=== PATIENT | female | born 1970 | race American Indian/Alaskan Native ===

== ENCOUNTER 2017-04-26 12:45 | Emergency (ER) | payer BC ==
[2017-04-26 13:40] LABS: Hematocrit 41.6 % (30.3-42.9); Hemoglobin 13.3 gm/dl (10.1-14.3); Mean Corpuscular HGB Conc 32 % (30-34); Mean Corpuscular Hemoglobin 27 pg (28-32); Mean Corpuscular Volume 86 fl (79-97); Platelet Count 229 K/mm3 (140-440); Red Blood Count 4.84 M/mm3 (3.65-5.03); Red Cell Distribution Width 14.7 % (13.2-15.2); White Blood Count 9.1 K/mm3 (4.5-11.0)
[2017-04-26 13:45] LABS: Anion Gap 18 mmol/L; BUN/Creatinine Ratio 13; Blood Urea Nitrogen 8 mg/dL (7-17); Calcium 8.7 mg/dL (8.4-10.2); Carbon Dioxide 23 mmol/L (22-30); Glucose 95 mg/dL (65-100); Potassium 4.1 mmol/L (3.6-5.0); Sodium 142 mmol/L (137-145)
[2017-04-26 14:20] LABS: Bilirubin,Urine NEG (Negative); Blood,Urine MOD (Negative); Ketones,Urine NEG (Negative); Leukocyte Esterase,Urine NEG (Negative); Mucus,Urine FEW /HPF; Nitrite,Urine NEG (Negative); Protein,Urine <15 mg/dL mg/dL (Negative); WBC,Urine < 1.0 /HPF (0.0-6.0)
--- NOTE | 2017-04-26 23:34 | Emergency Department Report ---
HPI - General Chief Complaint: Vaginal Bleeding Time Seen by Provider: 04/26/17 22:12 - HPI HPI: This is a 47-year-old demented female presents to the emergency department with complaint of a 3 day history of some low back pain, pelvic discomfort, and having an irregular period. The patient says that she last had her normal menstrual cycle about 2 weeks ago but recently started bleeding again although not in a heavy or intense amount. She has a history of fibroids with ablation and a tubal ligation. She took some Aleve for discomfort without any relief. She denies any discharge, dysuria, nausea, vomiting or fever. She does not have a primary care physician or WIREWORKER SUPERVISOR. ED Past Medical Hx - Past Medical History Additional medical history: h/o fibroids with ablasion - Surgical History Additional Surgical History: FIBROID SURGERY, tubal ligation - Social History Smoking Status: Never Smoker Substance Use Type: None - Medications Home Medications: Home Medications Medication Instructions Recorded Confirmed Last Taken Type HYDROcodone/APAP 5-325 [[place] 1 each PO Q6HR PRN #14 tablet 04/19/14 Unknown Rx 5/325] Phenazopyridine [Pyridium] 200 mg PO TID #9 tablet 04/19/14 Unknown Rx Sulfamethoxazole/Trimethoprim 1 each PO BID #20 tablet 04/19/14 Unknown Rx [Bactrim Ds] Ibuprofen [Motrin] 800 mg PO Q8HR PRN #60 tablet 02/15/15 Unknown Rx traMADol [Ultram 50 MG tab] 50 mg PO Q6HR PRN #10 tablet 04/27/17 Unknown Rx ED Review of Systems ROS: Stated complaint: VAGINAL BLEEDING, BACK AND SIDE PAIN Other details as noted in HPI Comment: All other systems reviewed and negative Constitutional: denies: chills, fever Eyes: denies: eye pain, eye discharge, vision change ENT: denies: ear pain, throat pain Respiratory: denies: cough, shortness of breath, wheezing Cardiovascular: denies: chest pain, palpitations Gastrointestinal: denies: nausea, vomiting Genitourinary: denies: urgency, dysuria, discharge Musculoskeletal: back pain. denies: arthralgia Skin: denies: rash, lesions Neurological: denies: headache, weakness, paresthesias Physical Exam - Physical Exam Vital Signs: Vital Signs 04/26/17 04/26/17 12:54 23:12 Temperature 98.8 F Pulse Rate 79 Respiratory 20 18 Rate Blood Pressure 161/92 O2 Sat by Pulse 99 Oximetry Physical Exam: GENERAL: The patient is well-developed well-nourished. HENT: Normocephalic. Atraumatic. Patient has moist mucous membranes. EYES: Extraocular motions are intact. Pupils equal reactive to light bilaterally. NECK: Supple. Trachea is midline. CHEST/LUNGS: Clear to auscultation. There is no respiratory distress noted. HEART/CARDIOVASCULAR: Regular. There is no tachycardia. There is no gallop rub or murmur. ABDOMEN: Abdomen is soft, nontender. Patient has normal bowel sounds. There is no abdominal distention. SKIN: Skin is warm and dry. NEURO: The patient is awake, alert, and oriented. The patient is cooperative. The patient has no focal neurologic deficits. The patient has normal speech. MUSCULOSKELETAL: There is no tenderness or deformity. There is no limitation range of motion. There is no evidence of acute injury. BACK: No midline thoracic or lumbar tenderness to palpation, step-off or deformity. ED Course Vital Signs 04/26/17 04/26/17 12:54 23:12 Temperature 98.8 F Pulse Rate 79 Respiratory 20 18 Rate Blood Pressure 161/92 O2 Sat by Pulse 99 Oximetry ED Medical Decision Making - Lab Data Result diagrams: 04/26/17 13:11 04/26/17 13:11 - Radiology Data Radiology results: report reviewed PROCEDURE: US TRANSVAGINAL TECHNIQUE: Real-time transvaginal sonography in multiple planes of the pelvis was performed with image documentation. Grayscale, color flow Doppler imaging and velocity spectral waveform analysis of the ovaries was employed (duplex imaging). CPT 71224 and 54679 HISTORY: pelvic pain, irregular bleeding COMPARISON: No prior studies are available for comparison. FINDINGS: UTERUS Size: 7.3 x 6.1 x 8 cm. Endometrial thickness: 6.4 mm. Orientation: anteverted. Cervix: Normal. Fibroids/masses: There are multiple uterine fibroids measuring up to 3.8 centimeters with calcification.. RIGHT Ovary: 2.7 x 1.7 x 3.2 cm. Appearance: There is a 15 millimeter cyst.. Doppler images: Normal spectral waveforms and color flow. The systolic and diastolic velocities are within normal limits. LEFT Ovary: 2.2 x 1 x 1.1 cm. Appearance: Normal. Doppler images: Normal spectral waveforms and color flow. The systolic and diastolic velocities are within normal limits. Pelvic fluid: None. IMPRESSION: There is no ovarian torsion. There is a right ovarian cyst. There are multiple uterine fibroids. There is no free pelvic fluid. Transcribed By: CO Dictated By: VIOLET POOLE MD Electronically Authenticated By: VIOLET POOLE MD Signed Date/Time: 04/26/172016 - Medical Decision Making The patient presents with a few days of low back pain, some mild pelvic discomfort and irregular menstrual bleeding. There is no midline back pain. She has no problems with bowel or bladder, numbness or paresthesias or any neurological deficits. She appears low suspicion for any of the emergent condition such as cauda equina, epidural abscess or cord compression syndrome. Her labs have been unremarkable. Ultrasound was done that shows a right ovarian cyst and multiple uterine fibroids. The cyst is not large in size and most likely not the etiology of her symptoms. The fibroids might be as they can cause discomfort and abnormal bleeding. The patient will go home with a small amount of pain medication and she understands the sedating nature of these meds and the risks. She'll be given referrals for WIREWORKER SUPERVISOR. She will return to the ER with any worsening of her symptoms or any acute distress. - Differential Diagnosis fibroids, , UTI, torsion, back spasm Critical Care Time: No Critical care attestation.: If time is entered above; I have spent that time in minutes in the direct care of this critically ill patient, excluding procedure time. ED Disposition Clinical Impression: Hypertension Qualifiers: Hypertension type: essential hypertension Qualified Code(s): I10 - Essential ( primary) hypertension Ovarian cyst Qualifiers: Laterality: right Qualified Code(s): N83.201 - Unspecified ovarian cyst, right side Uterine fibroid Qualifiers: Uterine leiomyoma location: unspecified location Qualified Code(s): D25.9 - Leiomyoma of uterus, unspecified Disposition: DC-01 TO HOME OR SELFCARE Is pt being admited?: No Condition: Stable Instructions: Hypertension (ED), Uterine Fibroids (ED), Ovarian Cyst (ED) Additional Instructions: Please follow up with an WIREWORKER SUPERVISOR in the next few days. Return to the emergency Department with any worsening of your symptoms or any acute distress. You have been prescribed a medication that is sedating and therefore should not be taken prior to driving, working, and responsible for children and in no way should be mixed with alcohol of any quantity. Try and stay away from foods that are high in salt and caffeinated products to help with your blood pressure. Keep a blood pressure log. Prescriptions: traMADol [Ultram 50 MG tab] 50 mg PO Q6HR PRN #10 tablet PRN Reason: Pain Referrals: PRIMARY CAREMD [Primary Care Provider] - 3-5 Days [facility] [Provider Group] - 3-5 Days [facility] [Provider Group] - 3-5 Days [facility] [Provider Group] - 3-5 Days Forms: Work/School Release Form(ED) Time of Disposition: 00:31
--- NOTE | 2017-04-27 00:20 | Ultrasound Report ---
FINAL REPORT PROCEDURE: US TRANSVAGINAL TECHNIQUE: Real-time transvaginal sonography in multiple planes of the pelvis was performed with image documentation. Grayscale, color flow Doppler imaging and velocity spectral waveform analysis of the ovaries was employed (duplex imaging). CPT 34909 and 38875 HISTORY: pelvic pain, irregular bleeding COMPARISON: No prior studies are available for comparison. FINDINGS: UTERUS Size: 7.3 x 6.1 x 8 cm. Endometrial thickness: 6.4 mm. Orientation: anteverted. Cervix: Normal. Fibroids/masses: There are multiple uterine fibroids measuring up to 3.8 centimeters with calcification.. RIGHT Ovary: 2.7 x 1.7 x 3.2 cm. Appearance: There is a 15 millimeter cyst.. Doppler images: Normal spectral waveforms and color flow. The systolic and diastolic velocities are within normal limits. LEFT Ovary: 2.2 x 1 x 1.1 cm. Appearance: Normal. Doppler images: Normal spectral waveforms and color flow. The systolic and diastolic velocities are within normal limits. Pelvic fluid: None. IMPRESSION: There is no ovarian torsion. There is a right ovarian cyst. There are multiple uterine fibroids. There is no free pelvic fluid.
--- NOTE | 2017-04-27 00:20 | Ultrasound Report ---
FINAL REPORT PROCEDURE: US TRANSVAGINAL TECHNIQUE: Real-time transvaginal sonography in multiple planes of the pelvis was performed with image documentation. Grayscale, color flow Doppler imaging and velocity spectral waveform analysis of the ovaries was employed (duplex imaging). CPT 81267 and 51886 HISTORY: pelvic pain, irregular bleeding COMPARISON: No prior studies are available for comparison. FINDINGS: UTERUS Size: 7.3 x 6.1 x 8 cm. Endometrial thickness: 6.4 mm. Orientation: anteverted. Cervix: Normal. Fibroids/masses: There are multiple uterine fibroids measuring up to 3.8 centimeters with calcification.. RIGHT Ovary: 2.7 x 1.7 x 3.2 cm. Appearance: There is a 15 millimeter cyst.. Doppler images: Normal spectral waveforms and color flow. The systolic and diastolic velocities are within normal limits. LEFT Ovary: 2.2 x 1 x 1.1 cm. Appearance: Normal. Doppler images: Normal spectral waveforms and color flow. The systolic and diastolic velocities are within normal limits. Pelvic fluid: None. IMPRESSION: There is no ovarian torsion. There is a right ovarian cyst. There are multiple uterine fibroids. There is no free pelvic fluid.
[2017-04-27 00:50] VITALS: BP 156/84
== END 2017-04-27 00:51 | disposition home or self-care (01) ==
LOC: ED 12:45
DX: N83.201 Unspecified ovarian cyst, right side (principal); D25.9 Leiomyoma of uterus, unspecified; I10 Essential (primary) hypertension
CPT/HCPCS: 36415; 76830; 80048; 81001; 84702; 85027; 93975

== ENCOUNTER 2018-09-16 17:52 | Emergency (ER) | payer BC ==
[2018-09-16] MEDS ORDERED: NACL 0.9% 1000 ML 1,000 ML IV ONE (20:23)
[2018-09-16 21:03] LABS: Basophils # (Auto) 0.1 K/mm3 (0.0-0.1); Basophils % (Auto) 0.6 % (0.0-1.8); Eosinophils # (Auto) 0.7 K/mm3 (0.0-0.4); Eosinophils % (Auto) 6.1 % (0.0-4.3); Hematocrit 42.6 % (30.3-42.9); Hemoglobin 13.9 gm/dl (10.1-14.3); Lymphocytes # (Auto) 3.3 K/mm3 (1.2-5.4); Lymphocytes % (Auto) 31.1 % (13.4-35.0); Mean Corpuscular HGB Conc 33 % (30-34); Mean Corpuscular Volume 83 fl (79-97); Monocytes # (Auto) 0.7 K/mm3 (0.0-0.8); Monocytes % (Auto) 6.3 % (0.0-7.3); Platelet Count 264 K/mm3 (140-440); Red Blood Count 5.15 M/mm3 (3.65-5.03); Red Cell Distribution Width 14.3 % (13.2-15.2)
[2018-09-16 21:24] LABS: Alanine Aminotransferase 15 units/L (7-56); Albumin 4.2 g/dL (3.9-5); BUN/Creatinine Ratio 13; Blood Urea Nitrogen 12 mg/dL (7-17); Calcium 9.5 mg/dL (8.4-10.2); Hemolysis Index 0
[2018-09-16 22:11] LABS: Bacteria,Urine 1+ /HPF (Negative); Bilirubin,Urine NEG (Negative); Blood,Urine LG (Negative); Color,Urine Yellow (Yellow); Mucus,Urine FEW /HPF; Protein,Urine <15 mg/dL mg/dL (Negative); Urobilinogen,Urine < 2.0 mg/dL (<2.0); WBC,Urine < 1.0 /HPF (0.0-6.0)
[2018-09-16 22:15] LABS: HCG Qualitative,Urine Negative (Negative)
[2018-09-16] MEDS ORDERED: TORADOL IM ONE (22:49)
--- NOTE | 2018-09-16 23:39 | Emergency Department Report ---
ED Abdominal Pain HPI - General Chief Complaint: Abdominal Pain Stated Complaint: BACK PAIN Time Seen by Provider: 09/16/18 21:53 Source: patient Mode of arrival: Ambulatory Limitations: No Limitations - History of Present Illness Initial Comments: This is a 48-year-old female nontoxic, well nourished in appearance, no acute signs of distress presents to the ED with c/o of bilateral flank pain 1 week. Patient denies any nausea or vomiting. Patient describes flank pain as cramping and aching with level of 3/10 diffuse. Patient denies chest pain, short of breath, fever, chills, headache, stiff neck, numbness or tingling. Patient denies any diarrhea or constipation. Patient denies any recent travels. Patient denies any allergies. MD Complaint: flank pain -: week(s) (1) Location: L flank, R flank Radiation: none Migration to: no migration Severity: mild Severity scale (0 -10): 8 Quality: aching Consistency: constant Improves With: nothing Worsens With: nothing Associated Symptoms: denies other symptoms. denies: nausea, vomiting, diarrhea, fever, chills, constipation, dysuria, hematemesis, hematochezia, melena, hematuria, anorexia, syncope - Related Data Previous Rx's Medication Instructions Recorded Last Taken Type HYDROcodone/APAP 5-325 [[place] 1 each PO Q6HR PRN #14 tablet 04/19/14 Unknown Rx 5/325] Phenazopyridine [Pyridium] 200 mg PO TID #9 tablet 04/19/14 Unknown Rx Sulfamethoxazole/Trimethoprim 1 each PO BID #20 tablet 04/19/14 Unknown Rx [Bactrim Ds] Ibuprofen [Motrin] 800 mg PO Q8HR PRN #60 tablet 02/15/15 Unknown Rx traMADol [Ultram 50 MG tab] 50 mg PO Q6HR PRN #10 tablet 04/27/17 Unknown Rx Acetaminophen with Codeine 1 each PO Q6H PRN #12 tablet 09/17/18 Unknown Rx [Tylenol with Codeine #3 Tablet] Ibuprofen [Motrin] 600 mg PO Q8H PRN #20 tablet 09/17/18 Unknown Rx Allergies Allergy/AdvReac Type Severity Reaction Status Date / Time No Known Allergies Allergy Unverified 04/19/14 04:50 ED Review of Systems ROS: Stated complaint: BACK PAIN Other details as noted in HPI Constitutional: denies: chills, fever Eyes: denies: eye pain, eye discharge, vision change ENT: denies: ear pain, throat pain Respiratory: denies: cough, shortness of breath, wheezing Cardiovascular: denies: chest pain, palpitations Endocrine: no symptoms reported Gastrointestinal: denies: abdominal pain, nausea, diarrhea Genitourinary: denies: urgency, dysuria, discharge Musculoskeletal: denies: back pain, joint swelling, arthralgia Skin: denies: rash, lesions Neurological: denies: headache, weakness, paresthesias Psychiatric: denies: anxiety, depression Hematological/Lymphatic: denies: easy bleeding, easy bruising ED Past Medical Hx - Past Medical History Additional medical history: h/o fibroids with ablasion - Surgical History Additional Surgical History: FIBROID SURGERY, tubal ligation - Social History Smoking Status: Never Smoker Substance Use Type: None - Medications Home Medications: Home Medications Medication Instructions Recorded Confirmed Last Taken Type HYDROcodone/APAP 5-325 [[place] 1 each PO Q6HR PRN #14 tablet 04/19/14 Unknown Rx 5/325] Phenazopyridine [Pyridium] 200 mg PO TID #9 tablet 04/19/14 Unknown Rx Sulfamethoxazole/Trimethoprim 1 each PO BID #20 tablet 04/19/14 Unknown Rx [Bactrim Ds] Ibuprofen [Motrin] 800 mg PO Q8HR PRN #60 tablet 02/15/15 Unknown Rx traMADol [Ultram 50 MG tab] 50 mg PO Q6HR PRN #10 tablet 04/27/17 Unknown Rx Acetaminophen with Codeine 1 each PO Q6H PRN #12 tablet 09/17/18 Unknown Rx [Tylenol with Codeine #3 Tablet] Ibuprofen [Motrin] 600 mg PO Q8H PRN #20 tablet 09/17/18 Unknown Rx ED Physical Exam - General Limitations: No Limitations General appearance: alert, in no apparent distress - Head Head exam: Present: atraumatic, normocephalic - Eye Eye exam: Present: normal appearance - Neck Neck exam: Present: normal inspection, full ROM. Absent: tenderness, meningismus, lymphadenopathy - Respiratory Respiratory exam: Present: normal lung sounds bilaterally. Absent: respiratory distress, wheezes, rales, rhonchi, stridor, chest wall tenderness, accessory muscle use, decreased breath sounds, prolonged expiratory - Cardiovascular Cardiovascular Exam: Present: regular rate, normal rhythm, normal heart sounds. Absent: bradycardia, tachycardia, irregular rhythm, systolic murmur, diastolic murmur, rubs, gallop - GI/Abdominal GI/Abdominal exam: Present: soft, normal bowel sounds. Absent: distended, tenderness, guarding, rebound, rigid, diminished bowel sounds - Extremities Exam Extremities exam: Present: normal inspection, full ROM - Back Exam Back exam: Present: normal inspection, full ROM, paraspinal tenderness (lumbar paraspinal). Absent: tenderness, CVA tenderness (R), CVA tenderness (L), muscle spasm, vertebral tenderness, rash noted - Neurological Exam Neurological exam: Present: alert, oriented X3, normal gait - Psychiatric Psychiatric exam: Present: normal affect, normal mood - Skin Skin exam: Present: warm, dry, intact, normal color. Absent: rash ED Course Vital Signs 09/16/18 20:20 Temperature 98.4 F Pulse Rate 89 Respiratory 18 Rate Blood Pressure 152/93 O2 Sat by Pulse 100 Oximetry - Reevaluation(s) Reevaluation #1: 09/16/18 23:36 Patient is speaking in full sentences with no signs of distress noted. ED Medical Decision Making - Lab Data Result diagrams: 09/16/18 20:24 09/16/18 20:24 - Medical Decision Making This is a 48-year-old female that presents with low back pain. Patient is stable and was examined by me. There is no abdominal tenderness. There is lumbar paraspinal pain. Labs obtained. UA obtained. CT of abdomen obtained and dictated by the radiologist. Patient is notified of the report with no questions noted by the patient. Vital signs are stable prior to discharge. Patient received medical treatment in the ED which patient stated symptoms has resolved and subsided. Patient was also instructed to Follow-up with a primary care doctor in 3-5 days or if symptoms worsen and continue return to emergency room as soon as possible. At time of discharge, the patient does not seem toxic or ill in appearance. No acute signs of distress noted. Patient agrees to discharge treatment plan of care. No further questions noted by the patient. Critical care attestation.: If time is entered above; I have spent that time in minutes in the direct care of this critically ill patient, excluding procedure time. ED Disposition Clinical Impression: Low back strain Qualifiers: Encounter type: initial encounter Qualified Code(s): S39.012A - Strain of muscle, fascia and tendon of lower back, initial encounter Disposition: TO HOME OR SELFCARE Is pt being admited?: No Does the pt Need Aspirin: No Condition: Stable Instructions: Low Back Strain (ED) Additional Instructions: Follow-up with a primary care doctor in 3-5 days or if symptoms worsen and continue return to emergency room as soon as possible. Prescriptions: Ibuprofen [Motrin] 600 mg PO Q8H PRN #20 tablet PRN Reason: Pain Acetaminophen with Codeine [Tylenol with Codeine #3 Tablet] 1 each PO Q6H PRN #12 tablet PRN Reason: Pain , Severe (7-10) Referrals: SIDRA NELSON MD [Primary Care Provider] - 3-5 Days PRIMARY CARE, [Referring] - 3-5 Days DEEPALI STOVER MD [Staff Physician] - 3-[address] [facility] [place] [Outside] - 3-5 Days [facility] [Outside] - 3-5 Days Forms: Work/School Release Form(ED)
--- NOTE | 2018-09-17 00:38 | Cat Scan Report ---
PROCEDURE: CT ABDOMEN PELVIS WO CON TECHNIQUE: Computerized axial tomography of the abdomen and pelvis was performed without intravenous contrast. This study is performed without intravascular contrast material and its sensitivity for ab dominal and pelvic pathology, including neoplasms, inflammation, abscess, free fluid, thrombosis, art erial dissection and infarction, is reduced compared with a contrast enhanced study. CT DOSE LENGTH PRODUCT: mGycm HISTORY: flank pain COMPARISONS: None . FINDINGS: Visualized lower thorax: No significant abnormality. Liver: Normal size and attenuation. Spleen: Normal size and attenuation. Gallbladder and biliary system: Normal. Pancreas: Normal. Adrenals: Normal. Kidneys: There are no kidney stones or ureteral stones. There is no hydronephrosis.. GI tract: There is no bowel obstruction, colitis or enteritis. The appendix is normal. . Lymph nodes and mesentery: There is mesenteric induration and adenopathy suggesting mesenteric adenit is or panniculitis.. Vasculature: Normal.. Bladder: Normal. Reproductive organs: Uterus is enlarged and contains multiple calcified fibroids.. Peritoneum: There is no ascites or free air, abscess or adenopathy.. Musculoskeletal structures: No significant abnormality. IMPRESSION: There are no kidney stones or ureteral stones. There is no hydronephrosis.. There is no bowel obstruction, colitis or enteritis. The appendix is normal. . There is mesenteric induration and adenopathy suggesting mesenteric adenitis or panniculitis.. Uterus is enlarged and contains multiple calcified fibroids.. There is no ascites or free air, abscess or adenopathy.. . This document is electronically signed by Javad Torrez MD., September 17 2018 12:36:25 AM ET
[2018-09-17 01:20] VITALS: BP 134/87
== END 2018-09-17 01:21 | disposition home or self-care (01) ==
LOC: ED 17:52
DX: S39.012A Strain of muscle, fascia and tendon of lower back, initial encounter (principal); Z98.51 Tubal ligation status; Z87.42 Personal history of other diseases of the female genital tract; X58.XXXA Exposure to other specified factors, initial encounter; Y93.89 Activity, other specified; Y92.89 Other specified places as the place of occurrence of the external cause; Y99.8 Other external cause status
CPT/HCPCS: 36415; 74176; 80053; 81001; 81025; 83690; 85025; 87086; 96372; 99284; J1885